=== PATIENT | male | born 1995 | race Caucasian/White ===

== ENCOUNTER 2017-07-11 22:51 | Emergency (ER) | payer SELFPAY ==
[~2017-07-11] VITALS: Ht 172.7 cm; Wt 74.8 kg
[2017-07-11] MEDS ORDERED: UNOBMED (23:01)
--- NOTE | 2017-07-11 23:19 | Emergency Room Report ---
History of Present Illness General Chief Complaint: Substance Abuse Source: EMS Present Illness HPI This is a 22-year-old male brought in by EMS for drug overdose. Suspect heroin overdose. He was found in a bathroom of a nearby restaurant unresponsive. There were drug paraphernalia consistent with heroin use. He had pinpoint pupils and EMS gave him total for milligram of Narcan. He became agitated and combative. Supposedly he was there for 4 hours. Unable to get any history from this patient because of his condition. Allergies: Coded Allergies: UNABLE TO ASSESS (Unverified , 07/11/17) Patient History Past Medical History: see triage record, old chart reviewed Past Surgical History: unable to obtain, other Pertinent Family History: unable to obtain Social History: Reports: drug use Immunizations: other Reviewed Nursing Documentation: PMH: Agreed, PSxH: Agreed Review of Systems All Other Systems: limited - Secondary to agitation Physical Exam Vital Signs Date Time Temp Pulse Resp B/P (MAP) Pulse Ox O2 Delivery O2 Flow Rate FiO2 07/11/17 22:57 96.6 147 31 99/81 77 Room Air vitals with tachycardia Sp02 EP Interpretation: reviewed, normal General Appearance: well appearing, no apparent distress, other - Agitated screaming Head: normocephalic, atraumatic Eyes: bilateral eye PERRL, bilateral eye EOMI ENT: hearing grossly normal, normal pharynx Neck: full range of motion, supple, no meningismus Respiratory: chest non-tender, lungs clear, normal breath sounds Cardiovascular #1: regular rate, rhythm, no murmur, tachycardia Gastrointestinal: normal bowel sounds, non tender, no mass, no organomegaly, no bruit, non-distended Musculoskeletal: back normal, normal range of motion, tender - Tenderness and edema to rt mid tibia laterally. no ecchymosis. Neurologic: grossly normal Psychiatric: other - Agitated Skin: warm/dry Medical Decision Making Diagnostic Impression: Primary Impression: Accidental heroin overdose Qualified Codes: T40.1X1A - Poisoning by heroin, accidental (unintentional), initial encounter Additional Impressions: Aspiration pneumonia Qualified Codes: J69.0 - Pneumonitis due to inhalation of food and vomit Rhabdomyolysis Qualified Codes: M62.82 - Rhabdomyolysis Contusion of right lower leg, initial encounter GERONIMO (acute kidney injury) Polysubstance abuse ER Course Patient presents with accidental overdose of heroin and also polysubstance abuse. I suspect he was unconscious he had aspiration. This may explain the white count and bandemia. He also has tenderness to the right lower extremity in the soft tissue. Is tender to palpation. There is some edema to it. He still has good pulses. I suspect a contusion. At this moment in time, I see no evidence of compartment syndrome. I suspect that he was laying on it for unknown amount of hours. There is no evidence of any bleed or CVA. Patient is now awake and is coherent. He has Suboxone and Narcan in his bookbag. He said he is in a rehabilitation place. I wanted to admit the patient to the hospital for continual IV fluid and observation. He said he doesn't want to stay. He wants to leave. At this moment in time, he is competent to make the decision to leave AMA. I will go ahead and prescribe antibiotics. This patient is a chronic risk of self injury due to poor impulse control, limited coping skills, and judgment intermittently impaired by intoxication. I believe that the available clinical evidence to suggest that these characteristics derived primarily from personality disorder and are likely very stable over time. Unfortunately, he is high risk for and morbidity secondary to his drug abuse. Laboratory Tests Test 07/11/17 23:15 07/11/17 23:20 07/12/17 01:20 White Blood Count 21.4 K/UL (4.8-10.8) H Red Blood Count 4.98 M/UL (4.70-6.10) Hemoglobin 15.5 G/DL (14.2-18.0) Hematocrit 43.9 % (42.0-52.0) Mean Corpuscular Volume 88 FL (80-99) Mean Corpuscular Hemoglobin 31.0 PG (27.0-31.0) Mean Corpuscular Hemoglobin Concent 35.2 G/DL (32.0-36.0) Red Cell Distribution Width 12.3 % (11.6-14.8) Platelet Count 296 K/UL (150-450) Mean Platelet Volume 7.0 FL (6.5-10.1) Neutrophils (%) (Auto) % (45.0-75.0) Lymphocytes (%) (Auto) % (20.0-45.0) Monocytes (%) (Auto) % (1.0-10.0) Eosinophils (%) (Auto) % (0.0-3.0) Basophils (%) (Auto) % (0.0-2.0) Differential Total Cells Counted 100 Neutrophils % (Manual) 72 % (45-75) Lymphocytes % (Manual) 7 % (20-45) L Monocytes % (Manual) 5 % (1-10) Eosinophils % (Manual) 1 % (0-3) Basophils % (Manual) 0 % (0-2) Band Neutrophils 15 % (0-8) H Platelet Estimate Adequate Platelet Morphology Normal Sodium Level 141 MMOL/L (136-145) Potassium Level 4.0 MMOL/L (3.5-5.1) Chloride Level 101 MMOL/L (98-107) Carbon Dioxide Level 25 MMOL/L (21-32) Anion Gap 15 mmol/L (5-15) Blood Urea Nitrogen 27 mg/dL (7-18) H Creatinine 2.1 MG/DL (0.55-1.30) H Estimat Glomerular Filtration Rate 39.0 mL/min (>60) Glucose Level 141 MG/DL (74-106) H Calcium Level 8.9 MG/DL (8.5-10.1) Total Creatine Kinase 1381 U/L (26-308) H Creatine Kinase MB 21.2 NG/ML (0.0-3.6) H Creatine Kinase MB Relative Index 1.5 Serum Alcohol < 3 mg/dL Urine Opiates Screen Positive (NEGATIVE) H Urine Barbiturates Screen Positive (NEGATIVE) H Phencyclidine (PCP) Screen Negative (NEGATIVE) Urine Amphetamines Screen Negative (NEGATIVE) Urine Benzodiazepines Screen Positive (NEGATIVE) H Urine Cocaine Screen Negative (NEGATIVE) Urine Marijuana (THC) Screen Negative (NEGATIVE) Lactic Acid Level 1.80 mmol/L (0.66-2.22) Lab Results Impression labs with leukocytosis, elevated CK. Rhythm Strip Diag. Results Rhythm Strip Time: 04:21 EP Interpretation: yes Rate: 107 Rhythm: NSR, no PVC's, no ectopy Chest X-Ray Diagnostic Results Chest X-Ray Diagnostic Results : Chest X-Ray Ordered: Yes # of Views/Limited/Complete: 1 View Indication: Shortness of Breath EP Interpretation: Yes Interpretation: no effusion, no pneumothorax, other - RUL and RML infiltrates Impression: Other - rt lung infiltrate Electronically Signed by: Bam Hernandez MD CT/MRI/US Diagnostic Results CT/MRI/US Diagnostic Results : Imaging Test Ordered: CT head Impression Read by radiologist as neg. Last Vital Signs Date Time Temp Pulse Resp B/P (MAP) Pulse Ox O2 Delivery O2 Flow Rate FiO2 07/11/17 22:57 96.6 147 31 99/81 77 Room Air Status: improved Disposition: AGAINST MEDICAL ADVICE Condition: Stable Scripts Ibuprofen* (MOTRIN*) 600 Mg Tablet 600 MG ORAL THREE TIMES A DAY, #30 TAB 0 Refills Prov: BAM HERNANDEZ M.D. 07/12/17 Azithromycin* (ZITHROMAX*) 250 Mg Tablet 250 MG ORAL DAILY, #6 TAB 0 Refills Take two tablets by mouth today, then take one tablet by mouth daily for four days Prov: BAM HERNANDEZ M.D. 07/12/17 Patient Instructions: Substance Use Disorder Additional Instructions: You are leaving AGAINST MEDICAL ADVICE. Continue with your rehabilitation. Stop using drugs. Take antibiotics. Return if symptom worsen. BAM HERNANDEZ M.D. Jul 11, 2017 23:19
[2017-07-11 23:26] VITALS: BP 114/40
[2017-07-11 23:36] LABS: HEMATOCRIT 43.9 % (42.0-52.0); HEMOGLOBIN 15.5 G/DL (14.2-18.0); MEAN CORPUSCULAR VOLUME 88 FL (80-99); PLATELET COUNT 296 K/UL (150-450); RED BLOOD COUNT 4.98 M/UL (4.70-6.10); RED CELL DISTRIBUTION WIDTH 12.3 % (11.6-14.8); WHITE BLOOD COUNT 21.4 K/UL (4.8-10.8)
[2017-07-11 23:40] LABS: ANION GAP 15 mmol/L (5-15); BLOOD UREA NITROGEN 27 mg/dL (7-18); CALCIUM 8.9 MG/DL (8.5-10.1); CARBON DIOXIDE 25 MMOL/L (21-32); CHLORIDE 101 MMOL/L (98-107); CREATININE 2.1 MG/DL (0.55-1.30); SODIUM 141 MMOL/L (136-145)
[2017-07-11 23:56] LABS: CKMB 21.2 NG/ML (0.0-3.6); CREATINE KINASE 1381 U/L (26-308)
[2017-07-12 00:17] VITALS: BP 100/64
[2017-07-12] MEDS ORDERED: cefTRIAXone 1 GM in NS 55 ML IVPB ONE (01:15)
[2017-07-12] MEDS ORDERED: Azithromycin 500 MG in NS 275 ML IV ONE (01:15)
[2017-07-12 01:51] VITALS: BP 95/58
[2017-07-12 02:21] VITALS: BP 99/69
[2017-07-12] MEDS ORDERED: Azithromycin 500mg Inj IV ONE (02:48)
[2017-07-12 03:36] VITALS: BP 98/36
[2017-07-12] MEDS ORDERED: QUETIAPINE FUMA25 MG ORAL (04:22)
[2017-07-12] MEDS ORDERED: CATAPRES0.1 MG ORAL (04:22)
[2017-07-12] MEDS ORDERED: BUPROPION XL300 MG ORAL (04:22)
[2017-07-12] MEDS ORDERED: IBUPROFEN600 MG ORAL (04:23)
[2017-07-12] MEDS ORDERED: AZITHROMYCIN250 MG ORAL (04:23)
[2017-07-12 07:09] VITALS: BP_SYST 125; BP_SYST 98; BP_DIAS 36; BP_DIAS 80
--- NOTE | 2017-07-12 08:39 | Diagnostic Imaging Report ---
Indication: Shortness of breath. Technique: XRAY Chest 1v Comparison: None Findings: Limited exam with low lung volumes. Heart may be borderline enlarged. Mediastinal contours appear sharp. There are patchy diffuse opacities in the right lung. There is no pleural effusion. No definite pneumothorax. No acute osseous abnormality appreciable. Impression: Limited exam with low lung volumes. Patchy opacities in the right lung concerning for pneumonia. Clinical correlation and follow-up exam recommended. This corresponds with the interpretation of the treating ER physician as documented in the electronic medical record.
--- NOTE | 2017-07-12 08:40 | Diagnostic Imaging Report ---
Indication: Pain Technique: XRAY Leg Lower Tib Fib 2v R Comparison: None Findings: There is no acute fracture or dislocation. The imaged knee and ankle joints are grossly preserved. No radiopaque foreign body is identified. Impression: No acute fracture or dislocation.
--- NOTE | 2017-07-12 08:44 | Diagnostic Imaging Report ---
Indication: Altered mental status Technique: Continuous helical CT scanning of the head was performed utilizing automated exposure control without intravenous contrast material. Axial and coronal reconstructions were obtained. Comparison: None CT dose: Total DLP 1351.16 mGycm; CTDI vol 70.38 mGy Findings: There is no acute intracranial hemorrhage, mass effect or cortical edema. Size and configuration of the ventricular system within normal limits. There is no depressed skull fracture. No focal soft tissue swelling/scalp hematoma identified. Mastoid air cells are clear. Mucosal thickening noted within some ethmoid air cells and bilateral maxillary sinuses. Impression: No evidence of acute intracranial hemorrhage, mass effect or cortical edema. MRI may be obtained for more sensitive evaluation as clinically indicated. Mild paranasal sinus disease. This corresponds with the statrad preliminary report. The CT scanner at [facility] is accredited by the [employer] and the scans are performed using protocols designed to limit radiation exposure to as low as reasonably achievable to attain images of sufficient resolution adequate for diagnostic evaluation.
== END 2017-07-12 07:11 | disposition left against medical advice (07) ==
LOC: EDBD 22:51 → EMR 23:19
DX: T40.1X1A Poisoning by heroin, accidental (unintentional), initial encounter (principal); J69.0 Pneumonitis due to inhalation of food and vomit; N17.9 Acute kidney failure, unspecified; S80.11XA Contusion of right lower leg, initial encounter; M62.82 Rhabdomyolysis; Y92.511 Restaurant or cafe as the place of occurrence of the external cause
CPT/HCPCS: 36415; 70450; 71045; 73590; 80048; 80307; 82550; 82553; 83605; 85007; 85025; 87040; 87081; 96361; 96365; 96375; 99284; G0480; J0456; J0696; J7050; 80329

== ENCOUNTER 2017-07-12 13:59 | Emergency (ER) | payer SELFPAY ==
[~2017-07-12] VITALS: Ht 172.7 cm; Wt 79.4 kg
[~2017-07-12 13:59] MED LIST: AZITHROMYCIN250 MG ORAL; BUPROPION XL300 MG ORAL; CATAPRES0.1 MG ORAL; IBUPROFEN600 MG ORAL; QUETIAPINE FUMA25 MG ORAL; UNOBMED
--- NOTE | 2017-07-12 14:46 | Emergency Room Report ---
History of Present Illness General Chief Complaint: Altered Level of Consciousness Present Illness HPI 22 YO Male presents to the ED for AMS, pt. is responsive however not Alert. No obvious signs of trauma. Was evaluated here in the emergency department this morning for opiate overdose and ultimately was discharged several hours ago. He had multiple doses of Subutex on his person at time of arrival to ED. HPI and review of systems is limited due to patient's status. Review previous chart from this morning for most information. Allergies: Coded Allergies: No Known Allergies (Unverified , 07/12/17) Patient History Past Medical History: see triage record Past Surgical History: none Pertinent Family History: none Reviewed Nursing Documentation: PMH: Agreed, PSxH: Agreed Nursing Documentation-PMH Hx Hypertension: Yes Review of Systems All Other Systems: negative except mentioned in HPI Physical Exam Vital Signs Date Time Temp Pulse Resp B/P (MAP) Pulse Ox O2 Delivery O2 Flow Rate FiO2 07/12/17 14:00 97.3 97 16 126/76 98 Room Air Sp02 EP Interpretation: reviewed, normal General Appearance: no apparent distress, alert, GCS 15, non-toxic Head: normocephalic, atraumatic Eyes: bilateral eye normal inspection, bilateral eye PERRL ENT: hearing grossly normal, normal voice Neck: full range of motion Respiratory: chest non-tender, lungs clear, normal breath sounds, speaking full sentences Cardiovascular #1: regular rate, rhythm, normal capillary refill Gastrointestinal: normal bowel sounds, non tender, soft Rectal: deferred Musculoskeletal: back normal, gait/station normal, normal range of motion, tender - Anterior right pollock ttp, no evidence of infection. or obvious deformity. Neurologic: responsive, sensory intact, speech normal, motor weakness - Pt is ineubriated. , grossly normal Psychiatric: judgement/insight normal Skin: normal color, no rash, warm/dry, well hydrated Medical Decision Making PA Attestation Dr. barron is my supervising Physician whom patient management has been discussed with. Diagnostic Impression: Primary Impression: Heroin overdose Qualified Codes: T40.1X1D - Poisoning by heroin, accidental (unintentional), subsequent encounter Additional Impressions: Heroin addiction Narcotic abuse Narcotic addiction Narcotic drug use ER Course 22 YO Male presents to the ED for AMS, pt. is responsive however not Alert. No obvious signs of trauma. Was evaluated here in the emergency department this morning for opiate overdose and ultimately was discharged several hours ago. He had multiple doses of Subutex on his person at time of arrival to ED. HPI and review of systems is limited due to patient's status. Review previous chart from this morning for most information. Ddx considered but are not limited to ETOH, Trauma, Syncope, dementia, OD, substance abuse, infection, acute intracranial pathology just to name a few Vital signs: are WNL, pt. is afebrile H&PE are most consistent with Opiate abuse recurrent. ORDERS: -CBC:Elevated white blood cell count-most likely due to acute stress. -CMP: Significantly elevated LFTs, AST is greater than ALT suspect alcoholic cause. Elevated creatinine however has decreased from results obtained this morning. -Salicylates: 4.3 WNL -Acetaminophen: <2 WNL -ETOH: < 3 ED INTERVENTIONS: - IV Access Established: External Jugular required as pt. did not have good peripheral IV access. -1mg Narcan IV -1 Liter NS Observance while he detoxifies. Pt. was allowed to sleep/rest. PT. became awake and alert x 3 DISCHARGE: At this time pt. is stable for d/c to home. Per Girlfriend/ visitor pt. already has Detox facility acceptance and is going there after ED D/C. Will provide printed patient care instructions, and any necessary prescriptions. Care plan and follow up instructions have been discussed with the patient prior to discharge. Labs Test 07/12/17 14:20 White Blood Count 16.2 K/UL (4.8-10.8) Red Blood Count 4.37 M/UL (4.70-6.10) Hemoglobin 13.4 G/DL (14.2-18.0) Hematocrit 38.4 % (42.0-52.0) Mean Corpuscular Volume 88 FL (80-99) Mean Corpuscular Hemoglobin 30.7 PG (27.0-31.0) Mean Corpuscular Hemoglobin Concent 34.8 G/DL (32.0-36.0) Red Cell Distribution Width 11.9 % (11.6-14.8) Platelet Count 261 K/UL (150-450) Mean Platelet Volume 7.1 FL (6.5-10.1) Neutrophils (%) (Auto) 80.4 % (45.0-75.0) Lymphocytes (%) (Auto) 9.8 % (20.0-45.0) Monocytes (%) (Auto) 9.4 % (1.0-10.0) Eosinophils (%) (Auto) 0.1 % (0.0-3.0) Basophils (%) (Auto) 0.3 % (0.0-2.0) Sodium Level 139 MMOL/L (136-145) Potassium Level 3.6 MMOL/L (3.5-5.1) Chloride Level 103 MMOL/L (98-107) Carbon Dioxide Level 28 MMOL/L (21-32) Anion Gap 8 mmol/L (5-15) Blood Urea Nitrogen 24 mg/dL (7-18) Creatinine 1.4 MG/DL (0.55-1.30) Estimat Glomerular Filtration Rate > 60 mL/min (>60) Glucose Level 108 MG/DL (74-106) Calcium Level 8.3 MG/DL (8.5-10.1) Total Bilirubin 0.3 MG/DL (0.2-1.0) Aspartate Amino Transf (AST/SGOT) 733 U/L (15-37) Alanine Aminotransferase (ALT/SGPT) 266 U/L (12-78) Alkaline Phosphatase 66 U/L (46-116) Total Protein 7.3 G/DL (6.4-8.2) Albumin 3.4 G/DL (3.4-5.0) Globulin 3.9 g/dL Albumin/Globulin Ratio 0.9 (1.0-2.7) Salicylates Level 4.3 ug/mL (2.8-20) Acetaminophen Level < 2 MCG/ML (10-30) Serum Alcohol < 3 mg/dL Last Vital Signs Date Time Temp Pulse Resp B/P (MAP) Pulse Ox O2 Delivery O2 Flow Rate FiO2 07/12/17 14:05 97.3 76 20 126/76 99 Room Air Disposition: HOME, SELF-CARE - D/C to Fiance/GF ( Responsible constitution party) Condition: Stable Referrals: NOT CHOSEN IPA/MD,REFERRING (PCP) Patient Instructions: Altered Mental Status Additional Instructions: Stop doing drugs . You at high risk for . Follow up with a Primary Care Provider in 3-5 days, even if your symptoms have resolved. --Please review list of primary care clinics, if you do not already have a primary care provider Return sooner to ED if new symptoms occur, or current symptoms become worse. - Please note that this Emergency Department Report was dictated using [employer] planner technology software, occasionally this can lead to erroneous entry secondary to interpretation by the dictation equipment. Camilla Dorsey Jul 12, 2017 14:46
[2017-07-12 14:48] VITALS: BP 120/70
[2017-07-12] MEDS ORDERED: Naloxone 1mg/ml 2ml IVP ONE (15:00)
[2017-07-12 15:50] LABS: BASOPHILS % (AUTO) 0.3 % (0.0-2.0); EOSINOPHILS % (AUTO) 0.1 % (0.0-3.0); HEMATOCRIT 38.4 % (42.0-52.0); HEMOGLOBIN 13.4 G/DL (14.2-18.0); LYMPHOCYTES % (AUTO) 9.8 % (20.0-45.0); MEAN CORPUSCULAR VOLUME 88 FL (80-99); MONOCYTES % (AUTO) 9.4 % (1.0-10.0); NEUTROPHILS % (AUTO) 80.4 % (45.0-75.0); PLATELET COUNT 261 K/UL (150-450); RED BLOOD COUNT 4.37 M/UL (4.70-6.10); RED CELL DISTRIBUTION WIDTH 11.9 % (11.6-14.8); WHITE BLOOD COUNT 16.2 K/UL (4.8-10.8)
[2017-07-12 15:51] LABS: ANION GAP 8 mmol/L (5-15); BLOOD UREA NITROGEN 24 mg/dL (7-18); CALCIUM 8.3 MG/DL (8.5-10.1); CARBON DIOXIDE 28 MMOL/L (21-32); CHLORIDE 103 MMOL/L (98-107); CREATININE 1.4 MG/DL (0.55-1.30); POTASSIUM 3.6 MMOL/L (3.5-5.1); SODIUM 139 MMOL/L (136-145)
[2017-07-12 15:56] LABS: ALANINE AMINOTRANSFERASE 266 U/L (12-78); ALBUMIN 3.4 G/DL (3.4-5.0); ALBUMIN/GLOBULIN RATIO 0.9 (1.0-2.7); ALKALINE PHOSPHATASE 66 U/L (46-116); ASPARTATE AMINO TRANSFERASE 733 U/L (15-37); BILIRUBIN,TOTAL 0.3 MG/DL (0.2-1.0)
[2017-07-12 16:01] VITALS: BP 110/70
[2017-07-12 18:35] VITALS: BP 130/80
== END 2017-07-12 18:37 | disposition home or self-care (01) ==
LOC: EMR 14:35
DX: T40.1X1D Poisoning by heroin, accidental (unintentional), subsequent encounter (principal); F11.20 Opioid dependence, uncomplicated
CPT/HCPCS: 36415; 80053; 85025; 96361; 96374; 99284; G0480; J2310; 80329